=== PATIENT | female | born 1955 | race Caucasian/White ===

== ENCOUNTER 2024-02-14 13:51 | Outpatient (CLI) | payer MEDICARE, SELFPAY ==
--- NOTE | ~2024-02-14 | DEXA_ITS ---
Bone Density Report Name: NASIR SCHWARTZ Age: 69 Sex: Female Ethnicity: White Date of : 1955 Indication: postmenopausal; screening for osteoporosis; history of glucocorticoids; Referring Provider: MAR ADAMS Study: Bone densitometry was performed. Exam Date: February 14, 2024 Accession number: [id number] Bone Density: Region BMD T-score Z-score Classification AP Spine(L1-L4) 0.880 -1.5 0.4 Osteopenia Femoral Neck (Left) 0.578 -2.4 -0.8 Osteopenia Total Hip (Left) 0.787 -1.3 0.1 Osteopenia Femoral Neck (Right) 0.601 -2.2 -0.6 Osteopenia Total Hip (Right) 0.784 -1.3 0.0 Osteopenia Total Hip Mean 0.785 -1.3 0.1 Osteopenia World Health Organization criteria for BMD impression classify patients as: Normal (T-score at or above -1.0), Osteopenia (T-score between -1.0 and -2.5), or Osteoporosis (T-score at or below -2.5). 10-year Fracture Risk(1): Major Osteoporotic Fracture 20% Hip Fracture 4.7% Reported Risk Factors: [place] (), Neck BMD=0.578, BMI=26.1, glucocorticoids (1) FRAX(R) Version 3.08. Fracture probability calculated for an untreated patient. Fracture probability may be lower if the patient has received treatment. Clinical Information Provided by Patient: Has taken Glucocorticoids Has used the following medications: Vitamin D, Calcium Patient maximum height was 67.5 No regular weight bearing exercise Drinks caffeinated beverages Onset of menses at age 17 Number of children 1 Impression: The patient has low bone mass, based on the Left Femoral Neck T-score. The patient has an estimated ten-year risk of hip fracture of 4.7% and an estimated ten-year risk of major fracture of 20%, based on the WHO FRAX algorithm. The patient has risk factors, including: history of glucocorticoid therapy. Discussion: BONE DENSITY IS LOW AT ONE OR MORE SKELETAL SITES. THE PATIENT'S BMD AND CLINICAL RISK FACTORS CONTRIBUTE TO THIS PATIENT'S HIGH RISK OF FRACTURE. This patient's lowest T-score is low at one or more skeletal sites. It meets the World Health Organization's (WHO) criteria for ?low bone mass? (T-score between -1.0 and -2.5). The patient's 10-year risk of hip fracture and 10 year risk of a major osteoporotic fracture as calculated by FRAX exceeds the threshold where pharmacological therapy is recommended by the National Osteoporosis Foundation (NOF). However, all treatment decisions require clinical judgment and consideration of individual patient factors, including patient preferences, comorbidities, previous drug use, risk factors not captured in the FRAX model (e.g., frailty, falls, vitamin D deficiency, increased bone turnover, interval significant decline in bone density) and possible under or overestimation of fracture risk by FRAX. The patient should follo
== END 2024-02-14 13:52 | disposition home or self-care (01) ==
LOC: ANHIMG 13:54
PROVIDERS: PCP Family Medicine; Visit Provider Physician Assistant Medical
DX: Z78.0 Asymptomatic menopausal state (principal); M85.88 Other specified disorders of bone density and structure, other site; M85.852 Other specified disorders of bone density and structure, left thigh; M85.851 Other specified disorders of bone density and structure, right thigh
CPT/HCPCS: 77080

== ENCOUNTER 2024-04-23 07:18 | Outpatient (CLI) | payer MEDICARE, SELFPAY ==
--- NOTE | ~2024-04-23 | MM_ITS ---
EXAMINATION: MM screening yue BI w mirna HISTORY: Screening TECHNIQUE: Craniocaudal and mediolateral oblique 3-D tomosynthesis images were obtained and synthetic 2-D images were generated. CAD analysis was submitted and interpreted. COMPARISON: No prior mammogram is available for comparison at this institution. BREAST PARENCHYMAL COMPOSITION: Not dense: There are scattered areas of fibroglandular density. FINDINGS: There is a focal asymmetry in the upper outer quadrant of the left breast. There are no alexis picious calcifications, masses or architectural distortion in the right breast to suggest malignancy. IMPRESSION: 1. Focal left breast asymmetry, upper outer quadrant, middle third. 2. Comparison to previous outside mammograms recommended. BI-RADS Category 0: Incomplete: Needs additional imaging evaluation. Reviewed, dictated and finalized at location B.
== END 2024-04-23 07:19 | disposition home or self-care (01) ==
PROVIDERS: PCP Family Medicine; Visit Provider Obstetrics & Gynecology
DX: Z12.31 Encounter for screening mammogram for malignant neoplasm of breast (principal); R92.8 Other abnormal and inconclusive findings on diagnostic imaging of breast
CPT/HCPCS: 77063; 77067

== ENCOUNTER 2024-05-27 10:47 | Outpatient (CLI) | payer MEDICARE, SELFPAY ==
--- NOTE | ~2024-05-27 | MMUS_ITS ---
EXAMINATION: MM diagnostic yue LT w mirna, US breast LT limited HISTORY: Follow-up left breast asymmetries TECHNIQUE: Additional 3-D tomosynthesis images of the left breast were performed and synthetic 2-D im ages were generated. CAD analysis was submitted and interpreted. High resolution Limited left breast ultrasound was performed. COMPARISON: 11/29/2019 BREAST PARENCHYMAL COMPOSITION: Not dense: There are scattered areas of fibroglandular density. FINDINGS: MAMMOGRAPHIC FINDINGS: There are no suspicious masses, calcifications or architectural distortion in the left breast to sugg est malignancy. ULTRASOUND: Limited left breast ultrasound: Normal heterogeneous echotexture without focal solid or cystic mass. IMPRESSION: 1. No evidence for malignancy in the left breast. 2. Routine yearly screening mammogram and regular clinical breast examination are recommended. BI-RADS Category 1: Negative Reviewed, dictated and finalized at location B. IMPRESSION: 1. No evidence for malignancy in the left breast. 2. Routine yearly screening mammogram and regular clinical breast examination a re recommended. BI-RADS Category 1: Negative
== END 2024-05-27 10:48 | disposition home or self-care (01) ==
LOC: ANHIMG 10:48
PROVIDERS: PCP Family Medicine; Visit Provider Obstetrics & Gynecology
DX: N64.89 Other specified disorders of breast (principal); Z12.4 Encounter for screening for malignant neoplasm of cervix
CPT/HCPCS: 76642; 77061; 77065; G0279

== ENCOUNTER 2025-04-15 13:22 | Outpatient (CLI) | payer MEDICARE, SELFPAY ==
--- OUTSIDE RECORDS SUMMARY | 2025-04-15 13:25 | XMS_ITS | Clinical Summary ---
Author Organization [facility] Address [address] [place] [address] Care Team Providers Care Feather Edger Name Role Phone Soheila Levy MD Unavailable Unavailable Pcp, [facility]- Primary Care Provider Unavailable Source Comments [facility],non-owned Affiliates and Associated Physician Practices is amultiple site organization consisting of ambulatory clinics and hospital sitesin [place], [place], [place] and [place]. This disclosure is being madepursuant to the Care Everywhere program and may not contain all information available regarding this patient. Last updated 18.[facility] Allergies Active Allergy Reactions Criticality Noted Date Comments Diphenhydramine Urticaria Medium 11/15/2011 Penicillins Urticaria High 11/15/2011 Medications * Be aware that medications may not be up to date on this document. Alwaysverify current medications with the patient. vitamin D, cholecalciferol , 2000 UNITS tablet Take 1 Tab by mouth once daily 0 03/21/2017 Active Melatonin 5 MG Take 5 mg by mouth once daily as needed Active Multiple Vitamins-Minera ls (MULTIVITAMIN ADULT) CHEW Take 1 Each by mouth once daily 11/20/2015 Active atorvastatin (Lipitor) 10 MG tablet TAKE 1 TABLET BY MOUTH EVERYDAY AT BEDTIME 90 tablet 07/28/2023 Active Active Problems Problem Noted Date Diagnosed Date IGT (impaired glucose tolerance) 06/08/2022 Vitamin D deficiency Overview (08/20/2015): Pure hypercholesterolemia wi th target low density lipoprotein (LDL) cholesterol less than 130 mg/dL Overview (02/18/2017): IMO Update 02/18/2017 Elevated BP Resolved Problems Problem Noted Date Diagnosed Date Resolved Date Menopause 05/11/2015 Diverticulosis 05/11/2015 Immunizations Immunization Administration Dates Next Due Covid Moderna primary monova lent 12+ yr 0.5mL 02/05/2021 Covid Pfizer primary Monoval ent 12+ yr 0.3ml 06/15/2022 FLU VACCINE TRI IIV3 SPLIT P F IM (FLUVIRIN) 09/02/2013 INFLUENZA VACCINE 08/27/2023 INFLUENZA VACCINE, ADJUVANTE D, QUADR. (FLUAD QUADRIVALENT; 65Y+) (AIIV4) 09/12/2022 INFLUENZA VACCINE, QUADR. (F LUZONE; FLULAVAL; FLUARIX; AFLURIA QUADRIVALENT; 6MO+), 0.5 ML (IIV4) 09/04/2021,09/15/2019,08/28/2017,2015,11/23/2015,11/03/2014 MODERNA SARS-COV-2 COVID-19 VACCINE 0.25ML 11/02/2021 PNEUMOCOCCAL PCV20 CONJ VAC IM 03/21/2022 Spikevax(nucleoside Modified) 08/27/2023 TDAP (7yrs+) 09/26/2017 Zoster Hzv Vacc Recombinant Inj Im 09/17/2020, iNFLUENZA VACCINE, RECOM-MATHIS, QUADR. (FLUBLOCK QUADRIVALENT; 18Y+) (RIV4) 09/17/2020,09/08/2018 Family History Medical History Relation Name Comments Hypercholesterolemia Brother Cancer - Colon Maternal Grandmother Osteoporosis Maternal Grandmother Arrhythmia Mother A fib Cancer - Colon Mother Dx age 76 Hypercholesterolemia Mother Osteoporosis Mother Thyroid Disease Mother Cancer - Breast Paternal Aunt Thyroid Disease Sister Relation Name Status Comments Brother Maternal Grandmother Mother Paternal Aunt Sister Social History Tobacco Use Types Packs/Day Years Used Date Smoking Tobacco: Never Smokeless Tobacco: Never Tobacco Cessation:Counseling Given: Yes Alcohol Use Standard Drinks/Week Comments Yes 0 (1 standard drink = 0.6 oz pur e alcohol) rarely PHQ-2 Answer Date Recorded PHQ2 TOTAL SCORE 0 01/10/2023 Comments No Sex and Gender Information Value Date Recorded Sex Assigned at Female 07/13/2021 9:13 AM CDT 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 Gender Identity Female 07/13/2021 9:13 AM CDT Sexual Orientation Straight 07/13/2021 9: 14 AM CDT Last Filed Vital Signs Vital Sign Reading Time Taken Comments Blood Pressure 104/70 02/07/2023 9:45 AM CDT Pulse 68 02/07/2023 9:45 AM CDT Temperature 36.2 C (97.1 F) 02/07/2023 9:56 AM CDT Respiratory Rate 18 02/07/2023 9:45 AM CDT Oxygen Saturation 93% 02/07/2023 9:45 AM CDT Inhaled Oxygen Concentration - - Weight 68 kg (150 lb) 02/07/2023 8:48 AM CDT Height 170.2 cm (5' 7) 02/07/2023 8:48 AM CDT Body Mass Index 23.49 02/07/2023 8:48 AM CDT Plan of Treatment Health Maintenance Due Date Last Done Comments COLOGUARD (AGES 45-75) - COLON CA SCREENING 1955 CT COLONOGRAPHY - COLON CA SCREENING 1955 FIT - COLON CA SCREENING 1955 FLEX SIG - COLON CA SCREENING 1955 MEDICARE AWV 12 MONTHS 03/21/2023 03/21/2022 MAMMOGRAM 04/10/2024 04/10/2023, 03/20, 04/07/2021, Additional history exists COVID-19 VACCINE ( season) 2024 08/27/2023, 09/12/2022, 06/15/2022, Additional history exists DEPRESSION SCREENING 11/20/2024 01/10/2023, 03/21/20 SCREENING FOR DIABETES 06/15/2025 , 02/12/2022, 02/12/2022, Additional history exists INFLUENZA VACCINE (Season Ended) 2025 08/27/2023, 09/12/2022, 09/04/2021, Additional history exists DTAP/TDAP/TD VACCINES (2 - Td or Tdap) 09/26/2027 09/26/2017 COLON MONITORING 02/08/2028 02/07/2023, , 02/07/2023, Additional history exists Colorectal Cancer Screening 02/08/2028 Respiratory Syncytial Virus (RSV) Vaccine Pt: or over 60 yrs (1 - 1-dose 75+ series) 01/26/2032 COLONOSCOPY - COLON CA SCREENING 02/07/2033 02/07/2023, 02/07/2023, 02/07/2023, Additional history exists BONE DENSITY TESTING Completed 06/09/2010 HEPATITIS C SCREENING Completed 05/28/2013 ZOSTER VACCINE Completed 09/17/2020, 06/11/2020 PNEUMOCOCCAL VACCINE 50+ Completed 03/21/2022 HEPATITIS B VACCINE Aged Out No longe r eligible based on patient's age to complete this topic HIB VACCINE Aged Out No longer eligi ble based on patient's age to complete this topic HPV VACCINE Aged Out No longer eligi ble based on patient's age to complete this topic MENINGOCOCCAL (Group B) VACCINE SHARED DECISION-MAKING Aged Out No longer eligible based on patient's age to complete this topic MENINGOCOCCAL GROUPS A/C/Y/W VACCINE Aged Out No longer eligible based on patient's age to complete this topic Procedures Procedure Name Priority Date/Time Associated Diagnosis Comments MAMMO BILAT SCREENING W EBER Routine 04/10/2023 3:35 PM CDT Visit for screening mammogram ENDOSCOPY, COLON, SCREENING Routine 02/07/2023 9:13 AM CDT Screen for colon cancer HEMOGLOBIN A1C - POINT OF CARE (AMB) Routine 06/15/2022 1:50 PM CDT IGT (impaired glucose tolerance) HEPATITIS C ANTIBODY Routine 05/28/2013 8:45 AM CDT Need for hepatitis C screening test DEXA BONE DENSITY 2 SITES Routine 06/09/2010 9:12 AM CDT Special Screening for Osteoporosis from Last 3 Months or Most Recently Relevant to Health Maintenance Results * MAMMO BILAT SCREENING W EBER (04/10/2023 3:35 PM CDT) Anatomical Region Laterality Modality Breast Bilateral Mammography 04/10/2023 3:49 PM CDT Impressions 04/10/2023 3:52 PM CDT : No mammographic evidence of malignancy in either breast. ASSESSMENT: BIRADS Category 1: Negative mammogram. RECOMMENDATION: Bilateral screening mammogram in one year. Thank you for allowing us to participate in the care of your patient. [facility] utilizes [employer] as a reminder system to notify patients of their next recommended mammogram. > Interpreting Provider: Ruthie Vincent MD on 04/10/2023 3:52 PM Narrative 04/10/2023 3:52 PM CDT EXAMINATION: Digital screening mammogram. Low-dose full-field digital breast tomosynthesis examination was performed with synthetic 2D images. Computer assisted detection was utilized. DATE: 04/10/2023 3:36 PM PRIOR: 03/31/2022 and prior mammograms dating back to 2018. BREAST PARENCHYMAL DENSITY: The breasts are heterogeneously dense, which may obscure small masses. FINDINGS: No suspicious masses, areas of architectural distortion or microcalcifications are evident on synthetic 2D mammogram or tomosynthesis images. There has been no significant interval change since the prior examination. Usman Wiggins MD MAMMO ORDERABLES Final Result * ENDOSCOPY, COLON, SCREENING (02/07/2023 9:13 AM CDT) Report Endoscopy POC _ Patient Name: Brianne Schwartz Procedure Date: 02/07/2023 9:13 AM Date of : 1955 Admit Type: Outpatient Age: 68 Gender: Female Ethnicity: Not or Race: White Attending MD: Caroline Harry MD _ Procedure: Colonoscopy Indications: Screening for colorectal malignant neoplasm Providers: Caroline Harry MD (Doctor), Jcarlos Carvalho RN, Lindsey Arellano, Mail Carrier Patient Profile: 68yo female with hx of polyps and family hx of colon cancer here for high risk surveillance colonoscopy Referring MD: Usman Wiggins MD (Referring MD) Medicines: Monitored Anesthesia Care Complications: No immediate complications. _ Estimated Blood Loss: Estimated blood loss: none. Procedure: Pre-Anesthesia Assessment: - Prior to the procedure, a History and Physical was performed, and patient medications, allergies and sensitivities were reviewed. The patient's tolerance of previous anesthesia was reviewed. - The risks and benefits of the procedure and the sedation options and risks were discussed with the patient. All questions were answered and informed consent was obtained. - Prior Anticoagulants: The patient has taken no previous anticoagulant or antiplatelet agents. - Prior Aspirin/ NSAID therapy: The patient has taken no previous aspirin or NSAID medications. - ASA Grade Assessment: II - A patient with mild systemic disease. After I obtained informed consent, the scope was passed under direct vision. Throughout the procedure, the patient's blood pressure, pulse, and oxygen saturations were monitored continuously. The Colonoscope was introduced through the anus and advanced to the cecum, identified by appendiceal orifice and ileocecal valve. The colonoscopy was performed without difficulty. The patient tolerated the procedure well. The quality of the bowel preparation was evaluated using the BBPS ([place] Bowel Preparation Scale) with scores of: Right Colon = 3, Transverse Colon = 3 and Left Colon = 3 (entire mucosa seen well with no residual staining, small fragments of stool or opaque liquid). The total BBPS score equals 9. The ileocecal valve, appendiceal orifice, and rectum were photographed. Impression: - One 4 mm polyp in the transverse colon, removed with a cold snare. Complete resection. Polyp tissue not retrieved. - One 6 mm polyp in the sigmoid colon, removed with a cold snare. Resected and retrieved. - The distal rectum and anal verge are normal on retroflexion view. - Diverticulosis in the sigmoid colon. Findings: The perianal and digital rectal examinations were normal. A 4 mm polyp was found in the transverse colon. The polyp was sessile. The polyp was removed with a cold snare. Resection was complete, but the polyp tissue was not retrieved. A 6 mm polyp was found in the sigmoid colon. The polyp was sessile. The polyp was removed with a cold snare. Resection and retrieval were complete. The retroflexed view of the distal rectum and anal verge was normal and showed no anal or rectal abnormalities. Multiple small and large-mouthed diverticula were found in the sigmoid colon. _ Recommendation: - Discharge patient to home. - Patient has a contact number available for emergencies. The signs and symptoms of potential delayed complications were discussed with the patient. Return to normal activities tomorrow. Written discharge instructions were provided to the patient. - Resume previous diet. - Await pathology results. - Repeat colonoscopy in 5 years for surveillance. Procedure Code(s): --- Professional --- 07714, Colonoscopy, flexible; with removal of tumor(s), polyp(s), or other lesion(s) by snare technique --- Technical --- 13599, Colonoscopy, flexible; with removal of tumor(s), polyp(s), or other lesion(s) by snare technique Diagnosis Code(s): --- Professional --- Z12.11, Encounter for screening for malignant neoplasm of colon K63.5, Polyp of colon K57.30, Diverticulosis of large intestine without perforation or abscess without bleeding --- Technical --- Z12.11, Encounter for screening for malignant neoplasm of colon K63.5, Polyp of colon K57.30, Diverticulosis of large intestine without perforation or abscess without bleeding CPT copyright 2019 [employer]. All rights reserved. The codes documented in this report are preliminary and upon outpatient coder review may be revised to meet current compliance requirements. __ Caroline Harry MD 02/07/2023 9:49:39 AM Number of Addenda: 0 Note Initiated On: 02/07/2023 9:13 AM [facility] ENDOSCOPY 02/07/2023 9:13 AM CDT Narrative Procedure Note Caroline Harry MD - 02/07/2023 9:50 AM CDT Colonoscopy done for hx of polyps and family hx of CRC. Two polyps noteds/p polypectomy. f/u path. Repeat colonoscopy in 5 years. Caroline Harry MD GI PROCEDURE ORDERABLES Ed ited Result - Final [facility] ENDOSCOPY * HEMOGLOBIN A1C - POINT OF CARE (AMB) (06/15/2022 1:50 PM CDT) Pathologist [facility] Hemoglobin A1c POCT 5.7 % [facility] Expiration Date 01-19-[address] [facility] Lot # [id number] [facility] QC Verified Yes Yes [facility] Blood BLOOD SPECIMEN / Unknown 06/15/2022 1:50 PM CDT Usman Wiggins MD LAB - POINT OF CARE ORDERABLES F inal Result [facility] [address] [place] [address], [facility] [phone] * HEPATITIS C ANTIBODY (05/28/2013 8:45 AM CDT) Hepatitis C Antibody NON-REACTI VE NON-REACT [facility] Signal to Cut-Off 0.02 <1.00 [facility] Comment: Test Performed at: [facility] [address] [place] [address] SANTOSH MAGUIRE DO,MPH Blood specimen (specimen) BLOOD SPECIMEN / Unknown 05/28/2013 8:45 AM CDT 05/28/2013 8:45 AM CDT Usman Wiggins MD LAB - CHEMISTRY ORDERABLES Final Result [facility] [address] [place] [address] * DEXA BONE DENSITY 2 SITES (06/09/2010 9:12 AM CDT) Anatomical Region Laterality Modality Nuclear Medicine 06/10/2010 1:26 PM CDT Narrative 06/10/2010 1:28 PM CDT Bone mineral density of the lumbar spine and right and left hips determined using dual energy x-ray absorptiometry technique. FINDINGS: The bone mineral density of L1 to L4 is 1.179 gm/cm sq with a T-value of -0.2 representing a normal spontaneous fracture risk. The value of L1-L4 was -0.2 on previous study of 05/26/2008 showing no change. The bone mineral density of the total right hip is 0.898 gm/cm sq with a T-value of -0.9 representing a normal spontaneous fracture risk. T value of total right hip was -1.0 on previous study showing no significant change. The bone mineral density of the total left hip is 0.939 gm/cm sq with a T-value of -0.5 representing a normal spontaneous fracture risk. T value of the left hip was -0.9 on previous study showing no change. SUMMARY: Normal bone mineral density of the lumbar spine and right and left hips. Study dated 06/09/2010. Procedure Note Kenney Nicholson MD - 06/10/2010 Bone mineral density of the lumbar spine and right and left hips determined using dual energy x-ray absorptiometry technique. FINDINGS: The bone mineral density of L1 to L4 is 1.179 gm/cm sq with a T-value of -0.2 representing a normal spontaneous fracture risk. The value of L1-L4 was -0.2 on previous study of 05/26/2008 showing no change. The bone mineral density of the total right hip is 0.898 gm/cm sq with a T-value of -0.9 representing a normal spontaneous fracture risk. T value of total right hip was -1.0 on previous study showing no significant change. The bone mineral density of the total left hip is 0.939 gm/cm sq with a T-value of -0.5 representing a normal spontaneous fracture risk. T value of the left hip was -0.9 on previous study showing no change. SUMMARY: Normal bone mineral density of the lumbar spine and right and left hips. Study dated 06/09/2010. Soheila Levy MD DEXA ORDERABLES Final Result from Last 3 Months or Most Recently Relevant to Health Maintenance Insurance MEDICARE [facility] MEDICARE [facility] Care Teams Feather Edger Relationship Specialty Start Date End [facility] - General 12/28/23 Soheila Levy MD Obstetrics and Gynecology 05/01/14
== END 2025-04-15 13:23 | disposition home or self-care (01) ==
LOC: ANHAUDIO 13:22
PROVIDERS: PCP Family Medicine; Visit Provider Student in an Organized Health Care Education/Training Program
DX: H90.3 Sensorineural hearing loss, bilateral (principal)
CPT/HCPCS: 92557; 92567